=== PATIENT | female | born 1950 | race Caucasian/White ===

== ENCOUNTER 2017-05-04 15:23 | Emergency (ER) | payer MEDICARE ==
[2017-05-04] MEDS ORDERED: Adacel (T-DAP) 0.5 ML VIAL ONE (16:00)
[2017-05-04] MEDS ORDERED: Sodium Bicarbonate 2.4 MEQ/5 ML ONE (16:03)
[2017-05-04] MEDS ORDERED: Bacitracin Zinc 1 Packet ONE (16:19)
== END 2017-05-04 16:27 | disposition home or self-care (01) ==
LOC: SCSER 15:23
DX: S01.81XA Laceration without foreign body of other part of head, initial encounter (principal); Z23 Encounter for immunization; W01.0XXA Fall on same level from slipping, tripping and stumbling without subsequent striking against object, initial encounter
CPT/HCPCS: 12011; 90471; 90715